=== PATIENT | female | born 2005 | race Caucasian/White ===

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

== ENCOUNTER 2024-11-16 14:26 | Outpatient (CLI) | payer MEDICAID, SELFPAY ==
[2024-11-16 15:43] LABS: Hematocrit 35.6 % (37.0-47.0); Hemoglobin 11.4 g/dL (12.0-15.0); Mean Corpuscular Hemoglobin 27.7 pg (26-34); Mean Corpuscular Volume 86.4 fl (80-100); Mean Platelet Volume 10.1 fl (7.4-10.4); Platelet Count Result 203 k/mm3 (150-375); Red Blood Count 4.12 M/mm3 (4.2-5.4); Red Cell Distribution Width 14.2 % (11.5-14.5); White Blood Count 7.1 K/mm3 (4.5-10.0)
[2024-11-16 15:59] LABS: Glucose 1 Hour PP 50gm Dose 130 mg/dL
[2024-11-16 16:28] LABS: Syphilis IgG/IgM Antibody Negative (Negative)
[2024-11-16 16:32] LABS: Hepatitis B Surface Antigen Negative (Negative); Rubella IgG Antibody 89.5 IU/ML
[2024-11-16 16:40] LABS: HIV 1/2 Ab P24 Ag Result Negative (Negative)
[2024-11-18 03:58] LABS: CMV IgG Antibody >10.00 U/mL; Varicella IgG Antibody 1.13 S/CO
== END 2024-11-16 14:27 | disposition home or self-care (01) ==
PROVIDERS: Visit Provider Student in an Organized Health Care Education/Training Program
DX: N91.2 Amenorrhea, unspecified (principal)
CPT/HCPCS: 36415; 82947; 84702; 85027; 86593; 86644; 86703; 86747; 86762; 86787; 86850; 86900; 86901; 87086; 87340; G0432

== ENCOUNTER 2024-12-27 10:16 | Observation (INO) | payer MEDICAID, SELFPAY ==
[2024-12-27 10:37] VITALS: BP 118/65; PULSE 86
[2024-12-27 10:53] VITALS: BMI 34.3
--- NOTE | 2024-12-27 10:53 | OBADM ---
This patient, Kaylene Noel, admitted to the OB room OB Post 115 for observation. Patient/family oriented to hospital policies and general routines including ID bracelet, bed and alarms, visiting hours, pain management, procedures, bathroom and other care routines, personal items, smoking policy, room service/diet, and visiting hours. Patient/Family are encouraged to report perceived risks to care and to ask questions if they do not understand what they are told or what they should do.
[2024-12-27 10:55] LABS: Add Urine Microscopic? YES; Appearance Urine Clear (Clear); Bacteria Urine 1+ /hpf; Bilirubin Urine Negative (Negative); Blood Urine 2+ (Negative); Color Urine Yellow (Yellow); Glucose Urine UA Negative (Negative); Ketones Urine Negative (Negative); Leukocyte Esterase Ur 2+ LEU/UL (Negative); Nitrate Urine Negative (Negative); Non Pathogenic Casts 0-2; Protein Urine Negative (Negative); RBC Urine 0-2 /hpf (0-2); Specific Grav Ur 1.016 (1.001-1.035); Squamous Epithelial Cell Urine Moderate /hpf (Few); Urobilinogen Urine 0.2 mg/dL (<2.0)
[2024-12-27 11:01] VITALS: BP 117/74; PULSE 92
--- NOTE | 2024-12-28 12:55 | PM.OBTRLD ---
OB - Triage/Final Diagnosis Visit Information Date of evaluation: 12/27/24 Reason for evaluation: threatened labor Comments/Additional reasons for admission: I have assessed the risk for this patient, Kaylene Noel, and determined that she would benefit from observation care. Evaluation Laboratory results: Laboratory Tests 12/27/24 10:38 Urine Color Yellow Urine Appearance Clear Urine pH 6.0 Ur Specific [place] 1.016 Urine Protein Negative Urine Glucose (UA) Negative Urine Ketones Negative Ur Blood (Man) 2+ H Urine Nitrate Negative Urine Bilirubin Negative Urine Urobilinogen 0.2 Leukocyte Esterase Rfl 2+ H Urine RBC 0-2 Urine WBC 11-20 H Ur Squamous Epith Cells Moderate Urine Bacteria 1+ H Urine Casts 0-2
== END 2024-12-27 11:25 | disposition home or self-care (01) ==
PROVIDERS: Admitting Provider Obstetrics & Gynecology; Visit Provider Student in an Organized Health Care Education/Training Program
DX: O47.02 False labor before 37 completed weeks of gestation, second trimester (principal); Z3A.26 26 weeks gestation of pregnancy
CPT/HCPCS: 81001; 87086; G0378; G0379

== ENCOUNTER 2025-01-14 07:43 | Outpatient (RCR) | payer MEDICAID, SELFPAY ==
[2025-01-12 16:37] LABS: Glucose 1 Hour PP 50gm Dose 141 mg/dL
[2025-01-12 17:09] LABS: Syphilis IgG/IgM Antibody Non-Reactive (Nonreactive)
[2025-01-12 17:14] LABS: HIV 1/2 Ab P24 Ag Result Negative (Negative)
[2025-01-14] MEDS: RHO(D) IMMUNE GLOBULIN 300 MCG/2 ML SYRINGE IM (15:16)
== END 2025-01-14 08:00 | disposition home or self-care (01) ==
LOC: ANHLAB 07:43
PROVIDERS: Visit Provider Obstetrics & Gynecology
DX: Z11.4 Encounter for screening for human immunodeficiency virus [HIV] (principal); Z11.3 Encounter for screening for infections with a predominantly sexual mode of transmission; Z29.13 Encounter for prophylactic Rho(D) immune globulin; O36.0190 Maternal care for anti-D [Rh] antibodies, unspecified trimester, not applicable or unspecified; Z3A.00 Weeks of gestation of pregnancy not specified
CPT/HCPCS: 36415; 82947; 85461; 86593; 86703; 86850; 86900; 86901; 90384; 96372; G0432; J2790

== ENCOUNTER 2025-01-19 06:42 | Outpatient (CLI) | payer MEDICAID, SELFPAY ==
[2025-01-19 07:34] LABS: Hematocrit 34.5 % (37.0-47.0); Hemoglobin 11.3 g/dL (12.0-15.0); Mean Corpuscular HGB Conc 32.8 g/dl (32-36); Mean Corpuscular Hemoglobin 27.4 pg (26-34); Mean Corpuscular Volume 83.5 fl (80-100); Mean Platelet Volume 10.1 fl (7.4-10.4); Platelet Count Result 214 k/mm3 (150-375); Red Blood Count 4.13 M/mm3 (4.2-5.4); Red Cell Distribution Width 13.1 % (11.5-14.5); White Blood Count 8.5 K/mm3 (4.5-10.0)
[2025-01-19 07:38] LABS: Glucose Fasting Gestational 89 mg/dL (>/=95)
== END 2025-01-19 06:43 | disposition home or self-care (01) ==
PROVIDERS: Visit Provider Obstetrics & Gynecology
DX: Z34.90 Encounter for supervision of normal pregnancy, unspecified, unspecified trimester (principal)
CPT/HCPCS: 36415; 82951; 82952; 85027

== ENCOUNTER 2025-02-12 11:40 | Observation (INO) | payer OTHER, SELFPAY ==
[2025-02-12 12:10] VITALS: BMI 34.9
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
--- NOTE | 2025-02-12 15:15 | OBADM ---
This patient, Kaylene Noel, admitted to the OB room Labor/Delivery/Recovery 103 for observation. Patient/family oriented to hospital policies and general routines including ID bracelet, bed and alarms, visiting hours, pain management, procedures, bathroom and other care routines, personal items, smoking policy, room service/diet, and visiting hours. Patient/Family are encouraged to report perceived risks to care and to ask questions if they do not understand what they are told or what they should do.
[2025-02-12 15:30] LABS: OBXCEM ROM Plus Negative (Negative)
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
--- NOTE | 2025-02-14 08:17 | PM.OBTRLD ---
OB - Triage/Final Diagnosis Visit Information Comments/Additional reasons for admission: I have assessed the risk for this patient, Kaylene Noel, and determined that she would benefit from observation care. Evaluation Laboratory results: Laboratory Tests 02/12/25 12:40 Membranes Rupture Rom plus negative Final Diagnosis (1) Vaginal discharge: Code(s): N89.8 - Other specified noninflammatory disorders of vagina Status: Acute
== END 2025-02-12 14:10 | disposition home or self-care (01) ==
PROVIDERS: Admitting Provider Obstetrics & Gynecology; Visit Provider Obstetrics & Gynecology
DX: O26.893 Other specified pregnancy related conditions, third trimester (principal); N89.8 Other specified noninflammatory disorders of vagina; Z3A.33 33 weeks gestation of pregnancy
CPT/HCPCS: 59025; 84112; G0378; G0379

== ENCOUNTER 2025-03-01 17:05 | Observation (INO) | payer OTHER, SELFPAY ==
[2025-03-01] VITALS (8 sets, daily range): BP systolic 96–120; BP diastolic 50–72; PULSE 71–96; BMI 35.0
[2025-03-01 19:24] LABS: Add Urine Microscopic? YES; Appearance Urine Cloudy (Clear); Glucose Urine UA Negative (Negative); Leukocyte Esterase Ur 2+ LEU/UL (Negative); Nitrate Urine Negative (Negative); Non Pathogenic Casts 0-2; Specific Grav Ur 1.027 (1.001-1.035)
[2025-03-01] MEDS: DEXTROSE 5%/LACTATED RINGERS 1,000 ML 999 ML IV CONT (20:50)
--- NOTE | 2025-03-05 00:29 | PM.OBTRLD ---
OB - Triage/Final Diagnosis Visit Information Comments/Additional reasons for admission: I have assessed the risk for this patient, Kaylene Noel, and determined that she would benefit from observation care. Evaluation Laboratory results: Laboratory Tests 03/01/25 03/01/25 18:43 21:22 POC Capillary Glucose 172 H Urine Color Dark yellow Urine Appearance Cloudy H Urine pH 5.5 Ur Specific [place] 1.027 Urine Protein 1+ H Urine Glucose (UA) Negative Urine Ketones 4+ H Ur Blood (Man) Trace Urine Nitrate Negative Urine Bilirubin Negative Urine Urobilinogen 1.0 Leukocyte Esterase Rfl 2+ H Urine RBC 0-2 Urine WBC 21-50 H Ur Squamous Epith Cells Moderate Urine Bacteria 1+ H Urine Casts 0-2 Final Diagnosis (1) False labor: Code(s): O47.9 - False labor, unspecified Status: Acute
== END 2025-03-01 22:06 | disposition home or self-care (01) ==
LOC: ANHLDR 03-02 07:18
PROVIDERS: Admitting Provider Student in an Organized Health Care Education/Training Program; Visit Provider Obstetrics & Gynecology
DX: O47.9 False labor, unspecified (principal)
CPT/HCPCS: 59025; 76819; 81001; 82948; 96360; G0378; G0379; J7121

== ENCOUNTER 2025-03-02 11:34 | Observation (INO) | payer OTHER, SELFPAY ==
[2025-03-02 12:15] VITALS: BP 115/71; PULSE 76
[2025-03-02 12:27] VITALS: BMI 34.7
--- NOTE | 2025-03-02 12:28 | OBADM ---
This patient, Kaylene Noel, admitted to the OB room OB Post 116 for observation. Patient/family oriented to hospital policies and general routines including ID bracelet, bed and alarms, visiting hours, pain management, procedures, bathroom and other care routines, personal items, smoking policy, room service/diet, and visiting hours. Patient/Family are encouraged to report perceived risks to care and to ask questions if they do not understand what they are told or what they should do.
[2025-03-02 12:30] VITALS: BP 100/62; PULSE 67
[2025-03-02 12:45] VITALS: BP 101/57; PULSE 75
[2025-03-02 14:30] LABS: OBXCEM ROM Plus Negative (Negative)
--- NOTE | 2025-03-02 14:31 | PC.NURSE ---
1200--Pt reports small amount of bleeding on tissue. C/O lower abdominal cramping. Encouraged to drink. Urine marbella colored. UA sent yesterday.
--- NOTE | 2025-03-02 14:36 | PC.NURSE ---
1215--Abdomen soft and non-tender.
--- NOTE | 2025-03-02 14:38 | PC.NURSE ---
1317--Reported pt status to Dr. Max. SVE ordered. DC orders given.
--- NOTE | 2025-03-09 07:54 | PM.OBTRLD ---
OB - Triage/Final Diagnosis Visit Information Date of evaluation: 03/03/25 Reason for evaluation: threatened labor Comments/Additional reasons for admission: I have assessed the risk for this patient, Kaylene Noel, and determined that she would benefit from observation care. Evaluation Laboratory results: Laboratory Tests 03/02/25 14:27 Membranes Rupture Rom plus negative
== END 2025-03-02 14:47 | disposition home or self-care (01) ==
PROVIDERS: Admitting Provider Student in an Organized Health Care Education/Training Program; Visit Provider Student in an Organized Health Care Education/Training Program
DX: O47.03 False labor before 37 completed weeks of gestation, third trimester (principal); Z3A.35 35 weeks gestation of pregnancy
CPT/HCPCS: 84112; G0378; G0379

== ENCOUNTER 2025-03-26 13:59 | Outpatient (RCR) | payer OTHER, SELFPAY ==
[2025-02-15 15:08] VITALS: BP 109/71; PULSE 143
[2025-02-18 13:41] VITALS: BP 122/75; PULSE 77
[2025-02-21 15:04] VITALS: BP 119/71; PULSE 99
[2025-02-26 15:25] VITALS: BP 120/68; PULSE 83
[2025-03-01 14:11] VITALS: BP 117/70; PULSE 90
[2025-03-05 14:38] VITALS: BP 115/78; PULSE 89
[2025-03-12 14:40] VITALS: BP 128/73; PULSE 101
[2025-03-18 16:44] VITALS: BP 117/82; PULSE 86
[2025-03-21 14:45] VITALS: BP 124/68; PULSE 87
--- NOTE | ~2025-03-26 | US_ITS ---
EXAMINATION: US OB BPP wo non-stress DATE: 03/01/2025 14:08 CDT INDICATION: Gestational diabetes mellitus TECHNIQUE: Real-time transabdominal obstetric ultrasound. FINDINGS: Ultrasound dated 02/21/2025 There is a single living fetus in vertex presentation. The placenta is posterior without placenta pr evia. cardiac activity and movement is noted with a heart rate of 129 beats per minute. Biophysical profile: breathin of 2 movement: 2 of 2 tone: 2 of 2 Amniotic flud pocket: 2 of 2 Total score: 8 of 8 LAINE is normal measuring 12.3 cm. IMPRESSION: 1. Single living intrauterine in vertex presentation. 2: Total biophysical profile score of 8/8. Reviewed, dictated and finalized at location B.
--- NOTE | ~2025-03-26 | US_ITS ---
EXAM: US OB BPP wo non-stress - 02/21/2025 15:05 CDT History: 19 years old Female with GDM Comparison: None available. Technique Real time transabdominal obstetric sonographic imaging was performed. Findings A single live intrauterine gestation is identified. Lie: longitudinal Presentation: vertex heart rate: 133 beats per minute Placental position: Posterior Biophysical profile: breathing movement: 0 Gross body movement: 2 tone: 2 Qualitative AFV: 2 Total BPP score: 6 of 8. Impression Total biophysical profile score is 6 out of 8. Reviewed, dictated and finalized at location A. Impression Total biophysical profile score is 6 out of 8.
--- NOTE | ~2025-03-26 | US_ITS ---
EXAMINATION: US OB BPP wo non-stress DATE: 03/26/2025 15:55 CDT INDICATION: Biophysical profile. TECHNIQUE: Real-time transabdominal obstetric ultrasound. FINDINGS: Comparison to ultrasound dated 03/18/2025 There is a single living fetus in vertex presentation. The placenta is fundal/posterior without placenta previa. LAINE is normal measuring 7.8 cm. cardiac activity and movement is noted with a heart rate of 1:30 BPM beats per minute. Biophysical profile: breathin of 2 movement: 2 of 2 tone: 2 of 2 Amniotic flud pocket: 2 of 2 Total score: 8 of 8 IMPRESSION: 1. Single living intrauterine in vertex presentation. 2: Total biophysical profile score of 8/8. Reviewed, dictated and finalized at location O.
--- NOTE | ~2025-03-26 | US_ITS ---
LIMITED OBSTETRIC ULTRASOUND/BIOPHYSICAL PROFILE Ordering provider: Aren Max MD History: . BPP, GDM . Comparison: None. FINDINGS: MATERNAL CERVIX: Not visualized. cm which is normal (normal is equal to or greater than 3.0 cm). PRESENTATION: Vertex. Longitudinal lie. PLACENTAL LOCATION: Posterior. No previa. HEART RATE: 139 bpm (normal is between 110 to 160 bpm). AMNIOTIC FLUID INDEX: 13 cm. 5th percentile is 8.3 cm. 95th percentile is 24.5th centimeters. Larges t vertical pocket is 3.9 cm. normal (LAINE between 5-25 cm in from 20-35 weeks gestation is considered normal). OTHER: Maternal ovaries not visualized. SCORE: breathing movements: 2 movements: 2 tone: 2 Amniotic fluid volume: 2 Total: 8 IMPRESSION: Normal biophysical profile. Normal amniotic fluid. Reviewed, dictated and finalized at location A.
--- NOTE | ~2025-03-26 | US_ITS ---
EXAMINATION: US OB BPP wo non-stress DATE: 03/18/2025 16:41 INDICATION: Maternal gestational diabetes during third trimester TECHNIQUE: Real-time pelvic ultrasound was performed. The interpreting radiologist was not present fo r the study. COMPARISON: 03/08/2025 FINDINGS: There is a single living fetus in vertex presentation. The placenta is posterior fundal. heart rate is 145 beats per minute (bpm). Normal amniotic fluid index of 11.1 cm (5th%-95%: 7.5-34.4 cm at 37 weeks estimated gestational age) Biophysical profile performed by the technologist: breathing (30 sec sustained breathing in 30 minutes): 2 out of 2 movement (3 gross body movements in 30 minutes): 2 out of 2 tone (one episode of [id number] limb movement): 2 out of 2 Amniotic fluid pocket (2 cm): 2 out of 2 Total score: 8 out of 8 IMPRESSION: 1. Single living fetus in vertex presentation with heart rate of 145 bpm. 2. Biophysical profile 8 out of 8. 3. Normal amniotic fluid index of 11.1 cm. Reviewed, dictated and finalized at location A.
--- NOTE | ~2025-03-26 | US_ITS ---
EXAMINATION: US OB BPP wo non-stress DATE: 03/08/2025 16:21 CDT INDICATION: Amniotic fluid index. Gestational diabetes. TECHNIQUE: Real-time transabdominal obstetric ultrasound. FINDINGS: No prior studies for comparison. There is a single living fetus in vertex presentation. The placenta is posterior without placenta pr evia. cardiac activity and movement is noted with a heart rate of 132 beats per minute. A FI is normal measuring 14.9 cm. Biophysical profile: breathin of 2 movement: 2 of 2 tone: 2 of 2 Amniotic flud pocket: 2 of 2 Total score: 8 of 8 IMPRESSION: 1. Single living intrauterine in vertex presentation. 2: Total biophysical profile score of 8/8. 3: Normal LAINE measures 14.9 cm. Reviewed, dictated and finalized at location A.
[2025-03-26 15:45] VITALS: BP 128/81; PULSE 78
== END 2025-03-31 13:30 | disposition other institution (70) ==
LOC: ANHOBOP 13:59
PROVIDERS: Visit Provider Student in an Organized Health Care Education/Training Program
DX: O24.419 Gestational diabetes mellitus in pregnancy, unspecified control (principal); Z3A.33 33 weeks gestation of pregnancy; Z3A.34 34 weeks gestation of pregnancy; O24.410 Gestational diabetes mellitus in pregnancy, diet controlled; Z3A.35 35 weeks gestation of pregnancy; Z3A.36 36 weeks gestation of pregnancy; Z3A.37 37 weeks gestation of pregnancy; Z3A.38 38 weeks gestation of pregnancy; Z3A.39 39 weeks gestation of pregnancy
CPT/HCPCS: 59025; 76819

== ENCOUNTER 2025-03-26 21:34 | Observation (INO) | payer OTHER, SELFPAY ==
[2025-03-26 21:24] VITALS: PULSE 74; O2SAT 96
[2025-03-26 21:29] VITALS: PULSE 80; O2SAT 95
[2025-03-26 21:30] VITALS: BP 132/80; PULSE 92
[2025-03-26 21:34] VITALS: PULSE 76; O2SAT 96
--- NOTE | 2025-03-26 21:36 | OBADM ---
This patient, Kaylene Noel, admitted to the OB room Labor/Delivery/Recovery 106 for observation. Patient/family oriented to hospital policies and general routines including ID bracelet, bed and alarms, visiting hours, pain management, procedures, bathroom and other care routines, personal items, smoking policy, room service/diet, and visiting hours. Patient/Family are encouraged to report perceived risks to care and to ask questions if they do not understand what they are told or what they should do.
[2025-03-26 21:39] VITALS: PULSE 84; O2SAT 97
--- NOTE | 2025-03-26 22:10 | PC.NURSE ---
2154- responded to page. RN reported pts arrival to unit with complaints of contractions and LOF. RN reported SVE, absence of contractions and negative ROM+ as well as reactive FHT's. Orders received for discharge.
--- NOTE | 2025-03-28 15:58 | PM.OBTRLD ---
OB - Triage/Final Diagnosis Visit Information Reason for evaluation: threatened labor Comments/Additional reasons for admission: I have assessed the risk for this patient, Kaylene Noel, and determined that she would benefit from observation care.
== END 2025-03-26 21:54 | disposition home or self-care (01) ==
PROVIDERS: Admitting Provider Obstetrics & Gynecology; Visit Provider Obstetrics & Gynecology
DX: O47.1 False labor at or after 37 completed weeks of gestation (principal); Z3A.39 39 weeks gestation of pregnancy
CPT/HCPCS: 99199

== ENCOUNTER 2025-03-27 16:36 | Inpatient (IN) | payer OTHER, SELFPAY ==
[2025-03-27] VITALS (8 sets, daily range): BP systolic 112–130; BP diastolic 58–80; PULSE 80–98; TEMP 36.4–36.9; BMI 38.5
--- OUTSIDE RECORDS SUMMARY | 2025-03-27 16:42 | XMS_ITS | Clinical Summary ---
Author Organization [facility] [employer] Address [address] [place] [address] Care Team Providers Care Project Management Name Role Phone Unavailable Primary Care Provider Unavailabl e Source Comments [facility] [employer],non-owned Affiliates and Associated Physician Practices is amultiple site organization consisting of ambulatory clinics and hospital sitesin [place], [place] and [place]. This disclosure is being madepursuant to the Care Everywhere program and may not contain all information available regarding this patient. Last updated [employer] Allergies Active Allergy Reactions Criticality Noted Date Comments Pineapple Anaphylaxis High 06/04/2023 Medications * This document contains information received from the source organization and may not represent a complete record from that organization. * Be aware that medications may not be up to date on this document. Alwaysverify current medications with the patient. OXcarbazepine (Trileptal) 150 MG tablet Take 1 (one) tablet by mouth 2 times daily 70 tablet 3 Active FLUoxetine (PROzac) 20 MG capsuleIndicati ons:Major Depressive Disorder Take 1 (one) capsule by mouth once daily Reasons: Major Depressive Disorder 35 capsule 3 Active Active Problems Problem Noted Date Diagnosed Date Abnormal glucose in , antepartum 2024 BMI 34.0-34.9,adult 03/02/2025 Obesity affecting in third trimester 0 03/02/2025 Bipolar disease during in third trimes ter 03/02/2025 Suicidal ideation 06/04/2023 Mood disorder 06/04/2023 Depression, unspecified depression type 06/04/20 23 Estimated Date of Delivery Comme nts Yes 04/02/2025 Based on last me nstrual period of 06/26/2024 Encounters Date Type Department Care Team Description 03/22/2025 Telephone [facility] [address] [place] [id number] Pati Ramos, RN LABS ONLY (Called and spoke with Mariza, patient's mother to see if patient was able to get her labwork M requested done. ) 03/02/2025 8:30 AM CDT - 03/02/2025 11:59 PM CDT Hospital Encounter [facility] [address] [place] [id number] Nevaeh Anderson MD Discharge Disposition: Home or Self Care 03/02/2025 8:15 AM CDT - 03/02/2025 8:29 AM CDT Hospital Encounter [facility] [address] [place] [id number] Trina Crowder MD Mead, Judith A, MD Discharge Disposition: Home or Self Care 02/08/2025 Telephone [facility] [address] [place] [id number] Pati Ramos, RN Appointment (Patient does not have listed phone number. Called motherMariza to help schedule patient's appt. ) from Last 3 Months Family History Medical History Relation Name Comments Hypertension Father Relation Name Status Comments Brother 1 Alive Brother 2 Alive Father Alive Mother Alive Social History Tobacco Use Types Packs/Day Years Used Date Smoking Tobacco: Never Smokeless Tobacco: Never Tobacco Cessation:Counseling Given: No Alcohol Use Standard Drinks/Week Comments Never 0 (1 standard drink = 0.6 oz pur e alcohol) AUDIT-C Answer Date Recorded Q1: How often do you have a drink containing alc ohol? Never 06/04/2023 Average Number of Drinks Not on file 023 Frequency of Binge Drinking Not on file 08/2022 Overall Financial Resource Strain (CARDIA) Answe r Date Recorded How hard is it for you to pa y for the very basics like food, housing, medical care, and heating? Very hard 06/04/2023 [facility] Occupat ional [facility] - Occupational Stress Questionnaire Answer Date Recorded Do you feel stress - tense, restless, nervous, or anxious, or unable to sleep at night because your mind is troubled all the time - these days? Very much 06/04/2023 Hunger Vital Sign Answer Date Recorded Within the past 12 months, y ou worried that your food would run out before you got the money to buy more. Never true 06/04/20 23 Within the past 12 months, t he food you bought just didn't last and you didn't have money to get more. Never true 06/04/2023 PRAPARE - Transportation Answer Date Re corded In the past 12 months, has l ack of transportation kept you from medical appointments or from getting medications? No 08/2022 In the past 12 months, has l ack of transportation kept you from meetings, work, or from getting things needed for daily living? No 06/04/2023 Housing Stability Vital Sign Answer Ottoniel e Recorded In the last 12 months, was t here a time when you were not able to pay the mortgage or rent on time? No 06/04/2023 In the last 12 months, how many places have you lived? 2 06/04/2023 In the last 12 months, was t here a time when you did not have a steady place to sleep or slept in a penitentiary (including now)? No 06/04/2023 Estimated Date of Delivery Comme nts Yes 04/02/2025 Based on last me nstrual period of 06/26/2024 Sex and Gender Information Value Date Recorded Sex Assigned at Not on file Legal Sex Female 11:15 PM CDT Gender Identity Not on file Sexual Orientation Not on file Last Filed Vital Signs Vital Sign Reading Time Taken Comments Blood Pressure 104/71 03/02/2025 8:56 AM CDT Pulse 87 03/02/2025 8:56 AM CDT Temperature 36.6 C (97.8 F) 06/09/2023 7:30 AM [employer] Respiratory Rate 18 06/09/2023 7:30 AM DIRECT MARKETING INTERN Oxygen Saturation 100% 06/09/2023 7:30 AM DIRECT MARKETING INTERN Inhaled Oxygen Concentration - - Weight 85.7 kg (189 lb) 03/02/2025 8:56 AM CDT Height 157.5 cm (5' 2) 03/02/2025 8:56 AM CDT Body Mass Index 34.57 03/02/2025 8:56 AM CDT Plan of Treatment Health Maintenance Due Date Last Done Comments HIV SCREENING 2019 HPV VACCINE (1 - 3-dose series) 2019 CHLAMYDIA/GONORRHEA SCREENING 2020 MENINGOCOCCAL (Group B) VACCINE SHARED DECISION-MAKING (1 of 2 - Standard) 2020 HEPATITIS C SCREENING 05/26/2022 DTAP/TDAP/TD VACCINES (1 - Tdap) 2023 HEPATITIS B VACCINE (1 of 3 - 19+ 3-dose series) 2023 COVID-19 VACCINE (3 - season) 2024 03/30/2021, 03/09/2021 OB-ONE HOUR GLUCOSE 12/25/2024 OB-TDAP CURRENT 01/01/2025 OB-RHOGAM INJECTION 01/08/2025 OB-GROUP B STREP SCREEN 02/26/2025 INFLUENZA VACCINE (#1) 2025 1, 08/22/2010, 06/08/2010, Additional history exists ZOSTER VACCINE (1 of 2) 2054 HIB VACCINE Aged Out No longer eligi ble based on patient's age to complete this topic MENINGOCOCCAL GROUPS A/C/Y/W VACCINE Aged Out No longer eligible based on patient's age to complete this topic PNEUMOCOCCAL VACCINE Aged Out No long er eligible based on patient's age to complete this topic Respiratory Syncytial Virus (RSV) Vaccine Pt: or over 60 yrs (No Doses Required) Completed Procedures Procedure Name Priority Date/Time Associated Diagnosis Comments SONOGRAM - COMPLETE Routine 03/02/2025 8 :26 AM CDT Encounter for ultrasound (HCC) Late care (HCC) Abnormal O'Randall glucose challenge test, antepartum (HCC) 35 weeks gestation of (HCC) from Last 3 Months Results * Sonogram - Complete (03/02/2025 8:26 AM CDT) Linked Results Indication ======== Gestational diabetes mellitus in , unspecified control Failed 1hr (141) Unable to Complete 3hr Maternal obesity complicating , class 1 (BMI 30.0 - 34.9) History ====== OB History 1 Lab Tests Test Date Result Not performed Maternal Assessment Physical Exam Height 155 cm, 5 ft 1 in. Weight 86 kg, 189 lb. Initial weight 83 kg, 183 lb. BMI 35.71 kg/m . Initial BMI 34.58 kg/m . Weight gain 3 kg, 6 lb Method ====== Transabdominal ultrasound. View: Sufficient ========= Todd . Number of fetuses: 1 Dating ====== Date Details Gest. age HIMA LMP 06/26/2024 35 w + 4 d 04/02/2025 Assigned dating based on the LMP, selected on 03/02/2025 35 w + 4 d 04/02/2025 General Evaluation Cardiac activity present. FHR 135 bpm. Presentation: cephalic Placenta: Placental site: posterior Umbilical cord: Cord vessels: 3 vessel cord. Insertion site: suboptimal Amniotic Fluid Assessment == Amount of AF: normal MVP 5.5 cm. LAINE 16.7 cm. Q1 3.7 cm, Q2 3.8 cm, Q3 3.7 cm, Q4 5.5 cm Biophysical Profile 2: breathing movements 2: Gross body movements 2: tone 2: Amniotic fluid volume NST: non-reactive 03/13 Biophysical profile score Non Stress Test NST interpretation: non-reactive. Baseline FHR 135 bpm. Baseline variability: moderate. Accelerations: present, do not meet criteria. Decelerations: absent Biometry BPD 87.2 mm 35w 1d 45% Hadlock HC 319.4 mm 36w 0d 27% Hadlock Cerebellum tr 48.1 mm 33% [place] AC 319.3 mm 35w 6d 67% Hadlock Femur 70.1 mm 36w 0d 54% Hadlock Humerus 62.3 mm 36w 0d 81% Carrillo HC / AC 1.00 Weight Calculation: EFW 2,776 g 56% Hadlock EFW (lb,oz) 6 lb 2 oz EFW by Hadlock ([id number]) appropriate Growth Overview Exam date GA BPD (mm) HC (mm) AC (mm) FL (mm) HL (mm) EFW (g) 03/02/2025 35w 4d 87.2 45% 319.4 27% 319.3 67% 70.1 54% 62.3 81% 2776 56% Anatomy The following structures appear normal: Head / Neck Cranium. Lateral ventricles. Choroid plexus. Midline falx. Cavum septi pellucidi. Cerebellum. Cisterna magna. Thalami. Face Lips. Profile. Nose. Nasal bone. Orbits. Heart / Thorax 4-chamber view. RVOT view. LVOT view. 3-vessel view. 5-putbye-mgijgpz view. Situs. Aortic arch view. Ductal arch view. Interventricular septum. Great vessels. Right lung. Left lung. Diaphragm. Abdomen Stomach. Kidneys. Bladder. Bowel. Spine Cervical spine. Thoracic spine. Lumbar spine. Sacral spine. Extremities / Skeleton Right forearm. Left arm. Right foot. Left leg. The following structures could not be adequately visualized: Heart / Thorax Bicaval view. Abdomen Cord insertion. Genitals. Extremities / Skeleton Hands. Right upper arm. Right leg. Left foot. Maternal Structures Right Ovary Not visualized Appearance: Adnexa appears normal Left Ovary Not visualized Appearance: Adnexa appears normal Impression ========= This is the first exam at our facility at this late gestational age. Single, live, intrauterine at 35w 4d Biometry is consistent with the stated gestational age. The amniotic fluid volume is normal. The biophysical profile is 8/10. anatomic survey is limited by late gestational age. Follow-up ======== Growth US in 3 weeks, See separate M visit note. Close surveillance for hypertension. Coding ====== Diagnoses O99.213, E66.811: Obesity complicating , class 1 (BMI 30.0 - 34.9) O24.419: Gestational diabetes mellitus in , unspecified control Procedures 10584: Biophysical Profile W NST 28640: US Preg Uterus Detailed [facility] [place] PACS Anatomical Region Laterality Modality Other 03/02/2025 8:26 AM CDT us John Gomez MD [facility] ORDERABLES Edited Result - Final from Last 3 Months Insurance Advance Directives * Full Code (Latest Code Status on File) Date Activated Date Inactivated Comments 06/04/2023 4:23 AM 06/09/2023 3:44 PM
[2025-03-27 17:13] LABS: Hematocrit 34.7 % (37.0-47.0); Hemoglobin 11.3 g/dL (12.0-15.0); Immature Granulocyte Percent A 0.4 % (0-0.5); Lymphocytes Absolute Auto 1.48 K/mm3 (0.9-3.2); Mean Corpuscular HGB Conc 32.6 g/dl (32-36); Mean Corpuscular Hemoglobin 26.3 pg (26-34); Mean Corpuscular Volume 80.9 fl (80-100); Nucleated Red Blood Cells Absolute Auto 0.000 K/mm3 (0.0-0.012); Nucleated Red Blood Cells Perc 0.0 % (0.0-0.2); Platelet Count Result 253 k/mm3 (150-375); Red Blood Count 4.29 M/mm3 (4.2-5.4); White Blood Count 9.7 K/mm3 (4.5-10.0)
[2025-03-27] MEDS: DINOPROSTONE 10 MG VAG INSERT VAGINAL (17:47)
--- NOTE | 2025-03-27 17:58 | LDADM ---
This patient, Kaylene Noel, was admitted to Labor/Delivery/Recovery 109 on 03/27/25 at 16:36. Plans for labor, pain management and were discussed with patient. Patient/family oriented to hospital policies and general routines including ID bracelet, bed and alarms, visiting hours, pain management, procedures, bathroom and other care routines, personal items, smoking policy, room service/diet and guest tray routines, infant security routines, and visiting hours. Patient/Family are encouraged to report perceived risks to care and to ask questions if they do not understand what they are told or what they should do. See OBIX for further documentation.
[2025-03-27 18:00] LABS: Syphilis IgG/IgM Antibody Non-Reactive (Nonreactive)
[2025-03-28] VITALS (201 sets, daily range): BP systolic 97–145; BP diastolic 46–91; PULSE 56–110; TEMP 36.3–36.7; O2SAT 94–100
[2025-03-28] MEDS: LACTATED RINGERS 1,000 ML 125 ML IV CONT ×3 (07:50→22:37)
--- NOTE | 2025-03-28 07:54 | P.HP_ITS ---
H&P: HPI History of Present Illness Date/Time: 03/28/25 07:54 Chief Complaint: Intrauterine at term gestational diabetes Narrative: 19-year-old who presents at 39 weeks for induction of labor for gestational diabetes. Patient's 1 hour GCT was elevated. She was unable to complete 3 hour GTT. Patient was checking blood sugars. Patient had several elevated postprandial levels. Review of Systems Cardiovascular: Cardiovascular: Denies chest pain, Denies leg edema, Denies palpitations, Denies dyspnea and Denies dyspnea on exertion Respiratory: Respiratory: Denies cough, Denies dyspnea and Denies dyspnea on exertion Gastrointestinal: Gastrointestinal: Denies abdominal pain, Denies constipation, Denies diarrhea, Denies nausea and Denies vomiting Genitourinary: Genitourinary: Denies hematuria, Denies urinary frequency, Denies dysuria, Denies pelvic pain, Denies urinary incontinence and Denies vaginal discharge Neurologic: Reports system reviewed and no additional complaints, except as documented Psychiatric: Psychiatric: Reports no additional psychiatric complaints Endocrine: Endocrine: Denies palpitations PMFSH Past Medical History Medical History Asthma Anxiety Family History Family History Grandparent Breast cancer Heart disease Brain cancer Mother Depression Diabetes mellitus Heart disease Hypertension Father Diabetes mellitus Heart disease Hypertension Social History Social History Smoking status: Never smoker Second hand tobacco smoke exposure: Yes Alcohol intake: former Substance use: never Substance use type: does not use Do You Feel Safe in your Home?: No Lack of Transportation: YES Lack of Food: Never True Current Housing: I Have Housing Concerned About Future Housing: No Difficulty Paying Gas/Electric Bills: No Difficulty Paying for Meds: No Currently Unemployed: No Education: High School Diploma/GED Difficulty w/ Childcare or Family Care: No Living arrangements: with family Occupation/Education: unemployed Gender identity (if verbalized by the patient): Female Sexual Orientation (if Verbalized by the Patient): Straight or Heterosexual Spiritual care concerns: No Meds Home Medications and Allergies Home Medications ?Medication ?Instructions ?Recorded ?Confirmed ?Type pediatric multivitamin 2 tablet PO DAILY 03/12/25 0 03/27/25 History no.203-ferrous sulfate 18 mg chewable tablet (Flintstones with Iron) Allergies Allergy/AdvReac Type Severity Reaction Status Date / Time pineapple Allergy Swelling Verified 03/24/25 15:36 of Lip/Tongue/Throat Vital Signs Vital Signs - 24 hr 03/27/25 17:09 03/27/25 17:30 03/27/25 18:00 Temperature 97.6 F Pulse Rate 81 98 89 Blood Pressure 121/70 119/78 122/80 Pulse Oximetry 03/27/25 18:30 03/27/25 19:00 03/27/25 19:30 Temperature Pulse Rate 83 94 87 Blood Pressure 130/80 120/77 112/58 L Pulse Oximetry 03/27/25 20:00 03/27/25 22:00 03/28/25 00:00 Temperature 97.8 F 98.4 F 97.4 F L Pulse Rate 80 Blood Pressure 117/72 Pulse Oximetry 03/28/25 00:15 03/28/25 00:30 03/28/25 00:45 Temperature Pulse Rate 85 102 H 76 Blood Pressure 114/56 L 132/71 125/73 Pulse Oximetry 03/28/25 01:00 03/28/25 01:15 03/28/25 01:31 Temperature Pulse Rate 80 83 84 Blood Pressure 125/85 135/60 145/72 H Pulse Oximetry 03/28/25 01:46 03/28/25 02:00 03/28/25 02:15 Temperature 98.1 F Pulse Rate 72 74 76 Blood Pressure 129/79 130/70 120/59 L Pulse Oximetry 03/28/25 02:47 03/28/25 03:01 03/28/25 04:00 Temperature 97.7 F Pulse Rate 79 73 Blood Pressure 108/59 L 118/81 Pulse Oximetry 03/28/25 04:30 03/28/25 05:01 03/28/25 05:30 Temperature Pulse Rate 64 66 70 Blood Pressure 122/74 110/60 133/84 Pulse Oximetry 03/28/25 06:00 03/28/25 06:11 03/28/25 06:16 Temperature 97.9 F Pulse Rate Blood Pressure Pulse Oximetry 98 98 03/28/25 06:21 03/28/25 06:26 03/28/25 06:31 Temperature Pulse Rate Blood Pressure Pulse Oximetry 99 98 98 03/28/25 06:36 03/28/25 06:41 03/28/25 06:46 Temperature Pulse Rate Blood Pressure Pulse Oximetry 99 99 99 03/28/25 06:51 03/28/25 06:56 03/28/25 07:00 Temperature Pulse Rate 67 Blood Pressure 125/91 H Pulse Oximetry 98 98 03/28/25 07:01 03/28/25 07:06 03/28/25 07:11 Temperature Pulse Rate Blood Pressure Pulse Oximetry 99 99 98 03/28/25 07:16 03/28/25 07:21 03/28/25 07:26 Temperature Pulse Rate Blood Pressure Pulse Oximetry 99 99 100 03/28/25 07:29 03/28/25 07:34 03/28/25 07:43 Temperature Pulse Rate Blood Pressure Pulse Oximetry 100 100 98 Exam Const: General: no acute distress Eyes: EOM: EOMs intact bilaterally Neck: Neck: supple Thyroid: thyroid normal Chest: Breast/axilla inspection: normal inspection of the breasts Breast/axilla palpation: normal palpation of the breasts, normal palpation of the axillae and no axillary lymphadenopathy Resp: Effort & Inspection: normal respiratory effort Auscultation: clear to auscultation bilaterally Cardio: Rate: regular rate Rhythm: regular rhythm GI: Inspection: non-distended and other (Gravid) GI Palp: Yes Soft to palpation, No Tenderness to palpation present (GI) and No Guarding due to palpation present (GI) Auscultation: normal bowel sounds : Speculum Exam - Vagina: No vaginal bleeding OB/external & speculum: external exam normal; No vaginal bleeding Skin: General skin exam: normal color and no rashes or lesions noted Neuro: Cognition (Neuro): normal cognition Speech: normal speech Extrem: General: normal to inspection Psych: Mental Status: mental status grossly normal Affect: normal affect H&P: Results Labs Labs: Short CBC 03/27/25 Range/Units 17:06 WBC 9.7 (4.5-10.0) K/mm3 Hgb 11.3 L (12.0-15.0) g/dL Hct 34.7 L (37.0-47.0) % Plt Count 253 (150-375) k/mm3 Assessment and Plan Assessment and plan (1) Supervision of high-risk : Code(s): O09.90 - Supervision of high risk , unspecified, unspecified trimester Status: Acute Assessment and Plan: 19 yo at 39w labs reviewed Rh neg, will need rhogam PP GBS negative (2) Gestational diabetes: Code(s): O24.419 - Gestational diabetes mellitus in , unspecified control Status: Acute Assessment and Plan: failed 1 hour GCT, unable to complete 3 hour Patient has been checking blood sugars at home Compliant with testing Plan for induction of labor at 39 weeks
[2025-03-28] MEDS: OXYTOCIN 30 UNITS/NS 500 ML 30 UNITS/500 ML BAG IV CONT (09:02)
[2025-03-28] MEDS: AMPICILLIN SODIUM 2 GM in SODIUM CHLORIDE 0.9% IV 100 ML 200 ML IVPB (09:20)
--- NOTE | 2025-03-28 13:04 | P.PNAN_ITS ---
Anes - Initial Pre Proc Eval Date/Time: 03/28/25 13:04 Surgeon: Aren Max MD Pre Op Diagnosis: IOL Patient Data Age: 19 Gender: F Height: 1.5 m Weight: 86.5 kg Last Vital Signs Temp 36.6 C 03/28/25 12:00 Pulse 59 L 03/28/25 13:00 BP 116/67 03/28/25 13:00 Pulse Ox 100 03/28/25 10:05 Allergies Allergy/AdvReac Type Severity Reaction Status Date / Time pineapple Allergy Swelling Verified 03/24/25 15:36 of Lip/Tongue/Throat Home Medications ?Medication ?Instructions ?Recorded ?Confirmed ?Type pediatric multivitamin 2 tablet PO DAILY 03/12/25 0 03/27/25 History no.203-ferrous sulfate 18 mg chewable tablet (Flintstones with Iron) Laboratory Tests 03/27/25 03/27/25 03/27/25 17:06 18:39 22:18 WBC 9.7 K/mm3 (4.5-10.0) RBC 4.29 M/mm3 (4.2-5.4) Hgb 11.3 L g/dL (12.0-15.0) Hct 34.7 L % (37.0-47.0) MCV 80.9 fl (80-100) MCH 26.3 pg (26-34) MCHC 32.6 g/dl (32-36) RDW 14.1 % (11.5-14.5) Plt Count 253 k/mm3 (150-375) MPV 11.3 H fl (7.4-10.4) Immature Gran % (Auto) 0.4 % (0-0.5) Neut % (Auto) 78.2 H % (45.5-73.1) Lymph % (Auto) 15.3 L % (18.3-44.2) [place] % (Auto) 5.3 % (2.6-8.5) Eos % (Auto) 0.5 % (0-4.4) Baso % (Auto) 0.3 % (0.2-1.2) Lymph # (Auto) 1.48 K/mm3 (0.9-3.2) [place] # (Auto) 0.5 K/mm3 (0.1-0.6) Eos # (Auto) 0.1 K/mm3 (0-0.3) Baso # (Auto) 0.0 K/mm3 (0.0-0.1) Abs Immat Gran (auto) 0.04 H K/mm3 (0.00-0.031) Absolute Neuts (auto) 7.6 H K/mm3 (1.3-6.7) Absolute Nucleated RBC 0.000 K/mm3 (0.0-0.012) Nucleated RBC % 0.0 % (0.0-0.2) POC Capillary Glucose 86 mg/dl 80 mg/dl (65-105) (65-105) Syphilis IgG/IgM Ab Non-reactive (Nonreactive) Blood Type AB Negative Antibody Screen Negative 03/28/25 03/28/25 03/28/25 02:01 06:04 10:24 WBC RBC Hgb Hct MCV MCH MCHC RDW Plt Count MPV Immature Gran % (Auto) Neut % (Auto) Lymph % (Auto) [place] % (Auto) Eos % (Auto) Baso % (Auto) Lymph # (Auto) [place] # (Auto) Eos # (Auto) Baso # (Auto) Abs Immat Gran (auto) Absolute Neuts (auto) Absolute Nucleated RBC Nucleated RBC % POC Capillary Glucose 90 mg/dl 84 mg/dl 84 mg/dl (65-105) (65-105) (65-105) Syphilis IgG/IgM Ab Blood Type Antibody Screen Patient hx anesthesia problems: none Family hx anesthesia problems: none Results Review: All pre-operative results and documents have been reviewed as part of the pre- operative evaluation. [facility] Past Medical History Medical History Asthma Anxiety Family History Family History Grandparent Breast cancer Heart disease Brain cancer Mother Depression Diabetes mellitus Heart disease Hypertension Father Diabetes mellitus Heart disease Hypertension Social History Social History Smoking status: Never smoker Second hand tobacco smoke exposure: Yes Alcohol intake: former Substance use: never Substance use type: does not use Do You Feel Safe in your Home?: No Lack of Transportation: YES Lack of Food: Never True Current Housing: I Have Housing Concerned About Future Housing: No Difficulty Paying Gas/Electric Bills: No Difficulty Paying for Meds: No Currently Unemployed: No Education: High School Diploma/GED Difficulty w/ Childcare or Family Care: No Living arrangements: with family Occupation/Education: unemployed Gender identity (if verbalized by the patient): Female Sexual Orientation (if Verbalized by the Patient): Straight or Heterosexual Spiritual care concerns: No Anes - Eval Final PreProcedure Day of Procedure 03/28/25 13:04 Patient weight: obese Heart: regular rate and rhythm Lungs: clear to auscultation Neurological: alert and oriented ASA classification: III Emergent: no Anesthetic plan: proceed Anesthesia type and monitoring: regional epidural and standard monitoring Results Review: All pre-operative results and documents have been reviewed as part of the pre- operative evaluation. Informed Consent: The patient's anesthetic plan and its attendant risks and benefits were discussed with the patient/family/POA. Questions were solicited and answers provided to the satisfaction of the patient/family/POA.
[2025-03-29] VITALS (113 sets, daily range): BP systolic 110–152; BP diastolic 45–85; PULSE 73–122; RESP 14–18; TEMP 36.1–37.5; O2SAT 89–100
[2025-03-29] MEDS: LACTATED RINGERS 1,000 ML 125 ML IV CONT (01:37)
[2025-03-29] MEDS: SODIUM CHLORIDE 0.9% IV 300 ML 600 ML I-UTERINE (03:31)
--- NOTE | 2025-03-29 04:27 | PM.OBPNLAB ---
Pain Control Date/time seen: 03/29/25 04:27 Pain control: epidural Pelvic Exam Dilation (cm): 7 Effacement (%): 90 station: -1 Amniotic membrane status: Ruptured Contractions Monitor mode: Internal Contraction pattern: Irregular Contraction intensity: Mild Status status: Category ll Assessment and Plan Assessment: induction ongoing Plan: Comments: Cervix has remained unchanged for several hours. Contractions have not been adequate despite Pitocin. heart tones have also had 3 separate prolonged decelerations. Plan of care discussed with patient. Given remote from delivery, intolerance from labor and protracted labor, would recommend proceeding with primary . Risks, benefits, alternatives reviewed. Patient consents to proceed with primary for failed induction of labor, arrest of dilation, intolerance to labor.
[2025-03-29] MEDS: ACETAMINOPHEN 500 MG TABLET 1000 MG PO ×4 (04:33→23:29)
[2025-03-29] MEDS: FAMOTIDINE 20 MG/2 ML VIAL IV PUSH (04:33)
[2025-03-29] MEDS: ONDANSETRON INJ 4 MG/2 ML VIAL IV PUSH (04:33)
[2025-03-29] MEDS: ceFAZolin 2 GM in SODIUM CHLORIDE 0.9% IV 50 ML 100 ML IVPB (04:46)
--- NOTE | 2025-03-29 05:37 | W.PM.OBCSD ---
OB - Delivery Note Procedure Delivery date: 03/29/25 Pre-op diagnosis: Arrest of Decent, Arrest of Dilation, Failed Induction of Labor, Decelerations and Gestational Diabetes Post-op Diagnosis: Same Induction method: Per Cervidil Protocol Delivery augmentation: Rupture of Membranes and Pitocin Delivery monitor: External FHT and Internal Uterine Prior to decision for section, ACOG/SM labor guidelines were considered and discussed with the patient and staff. Decision made to proceed with the section.: Yes Procedure Performed: Primary Primary branch: low cervical, transverse Surgeon: Aren Max MD Anesthesia type: Epidural Description of Procedure/Findings: The patient was taken to the operating room. Patient had an epidural that was found to be adequate at a t-10 level. The patient was placed in a supine position with a slight left lateral tilt. A tan catheter was placed with return of clear urine. A Bovie grounding pad was placed. Surgical prep was performed and surgical drapes were placed. A surgical time out was performed. A Pfannenstiel skin incision was then made with the scalpel and carried through to the underlying layer of fascia. The fascia was then incised in the midline and the incision was extended laterally with the Villatoro scissors. The superior aspect of the fascia was then grasped with the Aditi clamps, elevated, and the underlying rectus muscles dissected off bluntly and sharply. Attention was then turned to the inferior aspect of this incision which, in a similar fashion, was grasped, tented up with the Aditi clamps, and the rectus muscles dissected off both bluntly and sharply. The rectus muscles were then in the midline. The peritoneum was identified and entered bluntly. The peritoneal incision was then extended superiorly and inferiorly with good visualization of the bladder. An Alphonse ring retractor was placed for better visualization. The vesico-uterine serosa was identified and dissected to create a bladder flap. The uterus was inspected for rotation. A low-transverse uterine incision was made sharply with the scalpel and entry was made into the uterine cavity. The uterine incision was extended laterally bluntly. The fetus was delivered atraumatically. A nuchal cord x 1 was noted and reduced. The nose and mouth were suctioned with a bulb syringe. The umbilical cord was clamped twice and cut. The was handed off to the waiting staff. A second segment of umbilical cord was clamped and cut for cord blood gasses. Cord blood was collected for determination of the blood type and for direct Harris. The placenta was delivered spontaneously without difficulty. The placenta appeared grossly normal and complete. The uterus was exteriorized and cleared of all clots and debris. The uterine incision was repaired using 0-monocryl suture in a running fashion. A second layer of 0 Monocryl suture was used in an imbricating fashion to obtain excellent hemostasis and uterine strength. The uterine closure was inspected for hemostasis. The posterior aspect of the uterus and the broad ligaments were inspected and the posterior cul-de-sac cleared of fluid and blood clots. The uterine closure was again inspected and found to be hemostatic. The uterus was returned to the abdominal cavity. The pericolic gutters were inspected and were cleared of all blood clots and debris. The uterine closure was then re inspected to ensure hemostasis as were all subfascial tissues. The peritoneum was closed using 3-0 vicryl in a running fashion. The fascia was reapproximated with 0-vicryl in a running fashion. The subcutaneous tissue was irrigated and hemostasis achieved with electrocautery. It was reapproximated with 3-0 vicryl in a running fashion. The skin was closed with 4-0 vicryl in a subcuticular fashion. A sterile dressing was applied to the wound. The patient tolerated the procedure well. Sponge, lap and needle counts were correct times three. The patient was taken to recovery in stable condition and without anticipated complications. Estimated Blood Loss: 1,145 Urine Output: 150 Drains: No Packing: No Pathology: None sent Complications: No immediate complications Condition: Stable Disposition: Floor Baby Date of : 03/29/25 Gestational Age by Date: 39 Infant gender: Female presentation: vertex Placenta delivery description: Manual Removal Cord Vessel Description: 3 Vessels
[2025-03-29] MEDS: LIDOCAINE 5% PATCH 1 PATCH TRANSDERM (06:43)
[2025-03-29] MEDS: MORPHINE SULFATE (*CRX) 2 MG/ML INJ IV PUSH ×2 (07:28→07:41)
--- NOTE | 2025-03-29 08:17 | PC.NURSE ---
Patient transferred to post room #292 via stretcher. Support person present. Oriented to unit, room, information board, rooming in, admission packet and security measures. Patient verbalizes understanding.
[2025-03-29] MEDS: OXYTOCIN 30 UNITS/NS 500 ML 30 UNITS/500 ML BAG 125 UNITS IV CONT (08:35)
--- NOTE | 2025-03-29 09:50 | PC.NURSE ---
0950: Met with patient regarding needs. Name written on board and handout given with latch on tips. Patient is encouraged to call out at any feedings for help. She was able to breastfeed successfully after delivery. Baby is on the hypoglycemia protocol and needs preprandial blood sugars taken. Mom knows to call out for sugar checks before feeding. Primary RN updated. 1040: had a low blood glucose and the primary RN will be giving glucose gel and supplement. Mom is attempting to breastfeed now while waiting for the glucose interventions. Baby was latched to the breast already when I entered the room. The latch appeared shallow and mom agrees that it is a little painful. We removed baby from the breast and mom was shown how to back baby off the breast to allow for a wide gape and deep latch. It took a few attempts and then baby latched optimally with a mouth full of breast and suckled vigorously. Mom is encouraged to break any latch that is painful and try to latch deeper, calling for assistance as needed. Patient is quiet and doesn't say much, but agrees to call out if needed. Primary RN updated.
[2025-03-29] MEDS: KETOROLAC 15 MG/ML VIAL (*BKC) IV PUSH ×3 (11:42→23:25)
[2025-03-29] MEDS: SIMETHICONE 80 MG TAB.CHEW PO ×2 (11:43→16:03)
[2025-03-29] MEDS: DEXTROSE 5%/0.45% SOD CHL 1,000 ML 125 ML IV CONT (12:38)
[2025-03-29] MEDS: MULTIVIT/MIN/PREN/FOL AC/IRON TABLET 1 TAB PO (16:03)
[2025-03-29] MEDS: DOCUSATE SODIUM 100 MG CAPSULE PO (18:03)
[2025-03-29] MEDS: LANOLIN (LANSINOH) 7.5 GM CREAM 1 APPLIC TOPICAL (18:05)
[2025-03-29] MEDS: oxyCODONE HCL (*CRX) 5 MG TAB IR PO (20:05)
[2025-03-30 00:46] VITALS: BP 106/45; PULSE 80; RESP 16; TEMP 36.2; O2SAT 99
[2025-03-30 04:42] LABS: Hematocrit 25.3 % (37.0-47.0); Hemoglobin 8.2 g/dL (12.0-15.0); Immature Granulocyte Percent A 0.5 % (0-0.5); Lymphocytes Absolute Auto 1.35 K/mm3 (0.9-3.2); Mean Corpuscular HGB Conc 32.4 g/dl (32-36); Mean Corpuscular Hemoglobin 26.7 pg (26-34); Mean Corpuscular Volume 82.4 fl (80-100); Nucleated Red Blood Cells Absolute Auto 0.000 K/mm3 (0.0-0.012); Nucleated Red Blood Cells Perc 0.0 % (0.0-0.2); Platelet Count Result 180 k/mm3 (150-375); Red Blood Count 3.07 M/mm3 (4.2-5.4); White Blood Count 10.1 K/mm3 (4.5-10.0)
[2025-03-30] MEDS: ACETAMINOPHEN 500 MG TABLET 1000 MG PO ×4 (04:50→22:24)
[2025-03-30] MEDS: IBUPROFEN 600 MG TABLET PO ×4 (04:51→22:24)
[2025-03-30] MEDS: LIDOCAINE 5% PATCH 1 PATCH TRANSDERM (07:43)
[2025-03-30] MEDS: DOCUSATE SODIUM 100 MG CAPSULE PO ×2 (07:44→16:30)
[2025-03-30] MEDS: MULTIVIT/MIN/PREN/FOL AC/IRON TABLET 1 TAB PO (07:45)
[2025-03-30] MEDS: SIMETHICONE 80 MG TAB.CHEW PO ×3 (07:45→16:30)
[2025-03-30] MEDS: oxyCODONE HCL (*CRX) 5 MG TAB IR 10 MG PO (07:46)
--- NOTE | 2025-03-30 08:03 | WPDANLDPN2 ---
Anes-Prog Note L&D Date/Time: 03/30/25 08:03 Comfortable throughout: section Neuraxial method: epidural Epidural/Spinal procedure site: clean & non-tender Neuro status: Neuro function grossly intact. Cardiovascular status: normal Respiratory status: normal Airway patency: baseline Mental status: baseline Post-Op hydration status: normal Vital Signs: Last Vital Signs Temp 97.2 F L 03/30/25 00:46 Pulse 80 03/30/25 00:46 Resp 16 03/30/25 00:46 BP 106/45 L 03/30/25 00:46 Pulse Ox 99 03/30/25 00:46 O2 Del Method Room Air 03/29/25 19:44 Pain score (VAS): 0/10 I/O: Intake & Output 03/29/25 03/30/25 03/30/25 23:59 07:59 15:59 Intake Total 1045 Output Total 250 250 Balance 795 -250 Post-procedural complaints: none Patient feedback: Patient satisfied with anesthetic care.
--- NOTE | 2025-03-30 08:03 | WPDANLDNPN2 ---
Anes-Prog Note L&D-Neuraxial Date/Time: 03/30/25 08:03 Neuraxial medications: epidural PF morphine Opiod-related complaints: none Patient feedback: Patient satisfied with post-operative pain management.
[2025-03-30 08:30] VITALS: BP 106/63; PULSE 75; RESP 16; TEMP 36.6; O2SAT 99
--- NOTE | 2025-03-30 08:39 | P.PNOB_ITS ---
OB - PN: Subj Subjective Date/time seen: 03/30/25 08:39 Patient comments: no complaints, pain well controlled, tolerating diet and flatus present OB - PN: Obj Data Labs 03/30/25 03:26 Labs: Laboratory Results - last 24 hr 03/30/25 03:26 WBC 10.1 H RBC 3.07 L Hgb 8.2 L D Hct 25.3 L MCV 82.4 MCH 26.7 MCHC 32.4 RDW 14.8 H Plt Count 180 MPV 11.8 H Immature Gran % (Auto) 0.5 Neut % (Auto) 79.7 H Lymph % (Auto) 13.3 L Warrick % (Auto) 5.5 Eos % (Auto) 0.7 Baso % (Auto) 0.3 Lymph # (Auto) 1.35 Warrick # (Auto) 0.6 Eos # (Auto) 0.1 Baso # (Auto) 0.0 Abs Immat Gran (auto) 0.05 H Absolute Neuts (auto) 8.1 H Absolute Nucleated RBC 0.000 Nucleated RBC % 0.0 Blood Type AB Negative Antibody Screen Negative Screen Negative Baby's Blood Type A pos Baby's SARA Negative Doses of RhIg Required 1 OB - PN A/P Plan day: 1 Plan: routine care Comments: patient doing well H/H , asymptomatic afebrile, VSS incision Covered with STORM dressing tan removed, voiding spontaneously continue routine post op care Time Spent With Patient Time: Total time spent is greater than 50% in coordination of care (as documented) at patient's floor/unit and/or counseling patient: Time with patient: less than 15 minutes Review of Systems 2 Constitutional: Constitutional: Reports no additional constitutional complaints Cardiovascular: Cardiovascular: Reports no additional cardiovascular complaints Respiratory: Respiratory: Reports no additional respiratory complaints Gastrointestinal: Gastrointestinal: Reports no additional gastrointestinal complaints Genitourinary: Genitourinary: Reports no additional female genitourinary complaints Exam 2 Const: General: comfortable and no acute distress Resp: Effort & Inspection: normal respiratory effort Auscultation: clear to auscultation bilaterally Cardio: Rate: regular rate GI: GI Palp: Yes Soft to palpation, Yes Tenderness to palpation present (GI) (around incision ) and No Guarding due to palpation present (GI) A uscultation: normal bowel sounds Other: incision C/D/I, covered with Dermabond Psych: Appearance: grossly normal Mental Status: mental status grossly normal Affect: normal affect
--- NOTE | 2025-03-30 09:35 | PC.NURSE ---
Consulted with patient to assess needs related to . Discussed with mother her successes, concerns and any questions she has. We reviewed working with the , supporting breast, protecting her nipples with an optimal deep latch, good positioning, and good hand washing. Encouraged understanding the benefits of skin to skin, responding to feeding cues, frequencies of feeding 8-12 times in 24 hours (approximately 2-3 hours), duration of feedings, milk production, intake/output feeding sheet and signs of adequate intake encouraging swallowing at the breast. Reviewed positioning and alignment, supporting breast, off-centered (asymmetrical latch) and leading with the chin with big, open, wide gape. latched optimally to the [right] breast in [laid-back] position. Education given to the mother of how to visualize the suckling (with good rocking jaw motion) swallows (dropping of the lower jaw) and how to listen for drinking at the breast (the ka sound). The infant was [able] to maintain latch without discomfort to mother. Nipple care reviewed with optimal latch, good positioning and using clean hands when touching her breast. Resources used to facilitate learning were used from the [visual handouts/ tool/mom and baby guide]. Mother voiced understanding of the education shared, to call for assistance if the infant does not latch or if there is discomfort with . Reported to the Primary RN.
--- NOTE | 2025-03-30 12:35 | PC.NURSE ---
1235- Discussed with Merlene from Care coordination concerns for pt's ability to care for as well as past suicide attempt and Merlene stated she will come see pt later today and to call with further needs/ concerns.
[2025-03-30] MEDS: RHO(D) IMMUNE GLOBULIN 300 MCG/2 ML SYRINGE IM (12:55)
--- NOTE | 2025-03-30 16:43 | PCCCNOTE ---
Met with pt. and WALE Coughlin. This is their first child together. No previous children for both. Pt. and Ced reports they have support that includes family and friends. Pt. is already set up for [facility] and has instructions to contact the [place] office at discharge to start services. They have a car seat, bassinet, clothing, diapers, breast pump and other items for the baby. They do not have a stroller, spoke about [facility] in [place] and encouraged them to check to see if they have one gently used. Ced reports he will do this. Pt. reports at this time she does not have a PMD or a behavioral health physician. Reports that she did have behavioral health struggles last year which included thoughts to harm herself. Sought out treatment at that time and has not had to follow up since then. Does not take any behavioral health medication at this time. Pt. was provided information to establish with a PMD and information to establish with a Mental Health provider if needed. Pt. reports she plans to see Dr. Max on 04/28 and will touch base with him at that time on how she is feeling. Also pointed out information for post partem resources that include depression and anxiety feelings and encouraged her to use them if needed or to follow up before her appointment with Dr. Max. donation basket given. Pt. and Ced deny any other needs. Reports Ced will transport them home.
--- NOTE | 2025-03-30 17:16 | PC.NURSE ---
1645. Called to assist with patient latching to a sore/tender breast. Mom reports that her L nipple is sore/damaged, reviewed with mom proper alignment and positioning of which often creates the optimal latch. Mom attempted to latch with nipple shield to the L breast, after repeated attempts unable to latch and mom needed Max assistance for attempting with the shield. Mom was encouraged to pump the L breast or use the nipple shield until it heals enough to relatch to that nipple. Mom was also encouraged to call for infants feedings for latch checks to ensure she is latching appropriately so she does not get more sores. Nipple shield provided to mother due to sore, cracked L nipple. Reviewed good handwashing, cleaning the nipple shield and the appropriate way to apply and use as a tool. Discussed with mom the nipple shield precautions, possible complications associated with the risks and benefits. Reviewed practicing with a nipple shield, then without and how to protect the milk supply and production. Mom and baby guide referred to as a resource for outpatient services, community resources and when to call a provider. Mom voiced understanding of the importance of hand expression, nipple stimulation and initiating a pumping schedule if infant continues to nurse with the shield. Reported to the Primary RN.
[2025-03-30 19:15] VITALS: BP 113/59; PULSE 89; RESP 24; TEMP 36.4; O2SAT 99
[2025-03-30 20:00] VITALS: BP 126/77; PULSE 76; RESP 14; TEMP 36.9; O2SAT 99
[2025-03-31] MEDS: ACETAMINOPHEN 500 MG TABLET 1000 MG PO ×4 (04:28→23:01)
[2025-03-31] MEDS: IBUPROFEN 600 MG TABLET PO ×4 (04:29→23:01)
[2025-03-31] MEDS: oxyCODONE HCL (*CRX) 5 MG TAB IR 10 MG PO (07:22)
[2025-03-31] MEDS: SIMETHICONE 80 MG TAB.CHEW PO ×3 (07:23→16:45)
[2025-03-31] MEDS: LIDOCAINE 5% PATCH 1 PATCH TRANSDERM (07:25)
--- NOTE | 2025-03-31 07:26 | PC.NURSE ---
Patient rating pain 10/10 but declining pain medication at this time- education given and pt expresses she is uinable to swallow big pills. Showed pt roxicodone pill size and pt agreed to try to take them but declined am colace, and iron. This rn suggested mixing iron capsule and with pudding or applesauce and pt declined
--- NOTE | 2025-03-31 07:46 | P.PNOB_ITS ---
OB - PN: Subj Subjective Date/time seen: 03/31/25 07:46 Interval history: patient tearful this morning stating her pain is not well controlled. Patient is nervous about going home in caring for her incision. Patient comments: no complaints, incisional pain, tolerating diet and flatus present OB - PN: Obj Data Labs 03/30/25 03:26 Labs: Laboratory Results - last 24 hr 03/30/25 03:26 Blood Type AB Negative Antibody Screen Negative Screen Negative Baby's Blood Type A pos Baby's SARA Negative Doses of RhIg Required 1 OB - PN A/P Plan day: 2 Plan: routine care Comments: Patient states her pain is not controlled today Will increase oxycodone to 10 mg Offered patient another night in the hospital afebrile, VSS will monitor pain control throughout the day Patient reassured regarding postoperative incision care Anticipate discharge home tomorrow Time Spent With Patient Time: Total time spent is greater than 50% in coordination of care (as documented) at patient's floor/unit and/or counseling patient: Time with patient: less than 15 minutes Review of Systems 2 Constitutional: Constitutional: Reports no additional constitutional complaints Cardiovascular: Cardiovascular: Reports no additional cardiovascular complaints Respiratory: Respiratory: Reports no additional respiratory complaints Gastrointestinal: Gastrointestinal: Reports no additional gastrointestinal complaints Genitourinary: Genitourinary: Reports no additional female genitourinary complaints Exam 2 Const: General: comfortable and no acute distress Resp: Effort & Inspection: normal respiratory effort Auscultation: clear to auscultation bilaterally Cardio: Rate: regular rate GI: GI Palp: Yes Soft to palpation, Yes Tenderness to palpation present (GI) (around incision ) and No Guarding due to palpation present (GI) A uscultation: normal bowel sounds Other: incision C/D/I, covered with Dermabond Psych: Appearance: grossly normal Mental Status: mental status grossly normal Affect: normal affect
[2025-03-31 08:15] VITALS: BP 120/81; PULSE 73; RESP 18; TEMP 36.8; O2SAT 99
--- NOTE | 2025-03-31 12:12 | PC.NURSE ---
0740 Mother called out for assistance with latch. With MAX assist mother was able to latch infant to her right breast in football position. Her left nipple she was still using the nipple shield to feed as that nipple was sore. We reviewed working with the infant, supporting breast, protecting her nipples with an optimal deep latch, good positioning, and good hand washing. Encouraged understanding the benefits of skin to skin, responding to feeding cues, frequencies of feeding 8-12 times in 24 hours (approximately 2-3 hours), duration of feedings, milk production, intake/output feeding sheet and signs of adequate intake encouraging swallowing at the breast. We again reviewed positioning and alignment, supporting breast, off-centered (asymmetrical latch) and leading with the chin with big, open, wide gape. Education again given to the mother of how to visualize the suckling (with good rocking jaw motion) swallows (dropping of the lower jaw) and how to listen for drinking at the breast (the ka sound). Nipple care reviewed with optimal latch, good positioning and using clean hands when touching her breast. Mother voiced understanding of the education shared, to call for assistance if the does not latch or if there is discomfort with . Reported to the Primary RN. 1200 [facility] RN checking in with mother and she said the last feeding around 1000, she was able to latch infant to her left breast without using the nipple shield and that her nipple was healing and the latch was not as sore as before. Mother said the last void had was at 2:00am and [facility] RN told mother that infant would need to have another void by 2:00pm and to be watching for it and let the Primary RN know.
--- NOTE | 2025-03-31 16:13 | PM.OBDSVD ---
DS: Admitting Diagnosis Discharge Date 04/01/25 Admitting Diagnosis intrauterine at term Gestational diabetes DS: Discharge Diagnosis Discharge Diagnosis (1) Delivery by section of full-term : Code(s): O82 - Encounter for delivery without indication Status: Acute OB - DS: Summary OB Procedures : None OB Procedures Intrapartum: OB Procedures: : None Peripartum Data Delivery Method: Section Procedures: Procedures Operation Date: 03/29/25 04:30 Actual Procedure Side Surgeon p Section Not Applicable Aren Max MD complications: none Status at Discharge Functional status at discharge: independent ambulation Overall status at discharge: patient is progressing back to baseline Time Spent with Patient Time attestation: Total time spent providing and/or coordinating discharge services: Time spent: Less than 30 minutes Exam Const: General: comfortable and no acute distress Resp: Effort & Inspection: normal respiratory effort Auscultation: clear to auscultation bilaterally Cardio: Rate: regular rate GI: Inspection: non-distended GI Palp: Yes Soft to palpation, No Firmness to palpation present (GI), Yes Tenderness to palpation present (GI) (mild tenderness over incision ) and No Guarding due to palpation present (GI) Auscultation: normal bowel sounds Psych: Appearance: grossly normal Mental Status: mental status grossly normal Discharge Plan Discharge Discharging Clinician: Aren Max Patient Disposition: Home Activity: as tolerated and pelvic rest Diet: regular Patient Instructions: Antibiotic Form, (DC) Patient Language: Spanish Stand Alone Forms: General Discharge Information Follow-up/Referrals: Aren Max MD [Physician, [employer]] - 1 Week Referral Note: STORM dressing removal Discharge Medications: New oxycodone-acetaminophen 5-325 mg tablet 1 tablet PO Q6H PRN (Reason: pain) Qty: 28 0RF ferrous sulfate 325 mg (65 mg iron) tablet 325 mg PO BID Qty: 60 0RF ibuprofen 600 mg tablet 600 mg PO Q6H PRN (Reason: pain) Qty: 30 0RF sennosides-docusate sodium [Senexon-S] 8.6-50 mg tablet 1 tab-cap PO HS Qty: 30 0RF Continued Flintstones with Iron 18 mg iron tablet,chewable 2 tablet PO DAILY Date of admission: 03/27/25 16:36 Primary Care Provider: Cody,Carmen Ricketts Admitting Provider: Aren Max Attending physician on admission: Aren Max Condition: Stable
[2025-03-31 18:55] VITALS: BP 123/70; PULSE 81; RESP 18; TEMP 36.6; O2SAT 98
[2025-04-01] MEDS: IBUPROFEN 600 MG TABLET PO ×2 (05:36→11:30)
[2025-04-01] MEDS: ACETAMINOPHEN 500 MG TABLET 1000 MG PO ×2 (05:37→11:30)
[2025-04-01 07:50] VITALS: BP 123/83; PULSE 77; RESP 16; TEMP 36.9; O2SAT 98
--- NOTE | 2025-04-01 08:15 | PC.NURSE ---
Consulted with mother concerning needs and she shared that she has no questions or concerns regarding . She is using the nipple shield 'some' and it is recommended to her to pump when using the shield consistently. She is supplementing also and mostly bottle fed last night. Mother is feeding appropriately for growth of infant. has had appropriate feedings in the last 24 hours meets the outcomes for weight, output, blood sugar and jaundice at this time. Reinforced understanding of signs of adequate intake, mastitis, community resources ([facility] referral faxed to [place]), outpatient services, and when to call a provider using the resource of the feeding sheet along with the mom and baby guide. Mother voiced understanding of the information shared, is confident to continue effectively feeding her at home, when to call for assistance, denies any additional assistance or education at this time. Reported to the Primary RN.
[2025-04-01] MEDS: oxyCODONE HCL (*CRX) 5 MG TAB IR PO ×2 (09:01→14:45)
[2025-04-01] MEDS: MULTIVIT/MIN/PREN/FOL AC/IRON TABLET 1 TAB PO (09:01)
[2025-04-01] MEDS: SIMETHICONE 80 MG TAB.CHEW PO ×2 (09:01→11:30)
[2025-04-01] MEDS: DOCUSATE SODIUM 100 MG CAPSULE PO (09:01)
--- NOTE | 2025-04-01 09:30 | PC.NURSE ---
Patient viewed the discharge video Mother & Baby Care, The First Two Weeks. Patient was given the opportunity and encouraged to ask questions. Patient verbalized understanding of information shared and has been given the mother/baby guide for home reference.
[2025-04-02 10:58] VITALS: BP 135/87; PULSE 88; RESP 18; TEMP 36.9; O2SAT 100
== END 2025-04-01 15:30 | disposition home or self-care (01) | DRG 540 ==
LOC: ANHLDR 16:49 → ANHOB2 03-29 08:19
PROVIDERS: Admitting Provider Student in an Organized Health Care Education/Training Program; Visit Provider Student in an Organized Health Care Education/Training Program
PROC: 10D00Z1 Extraction of Products of Conception, Low, Open Approach (ICD-10-PCS; CPT 59514; principal; 2025-03-29 04:30)
DX: O24.429 Gestational diabetes mellitus in childbirth, unspecified control (principal); O76 Abnormality in fetal heart rate and rhythm complicating labor and delivery; O69.81X0 Labor and delivery complicated by cord around neck, without compression, not applicable or unspecified; Z3A.39 39 weeks gestation of pregnancy; Z37.0 Single live birth; O62.1 Secondary uterine inertia; O62.0 Primary inadequate contractions
CPT/HCPCS: 36415; 76819; 82948; 85025; 85461; 86593; 86850; 86900; 86901; 90384; J0690; A9270; J0290; J1885; J2270; J2274; J2405; J2590; J2790; J2795; J7030; J7120

== ENCOUNTER 2025-04-07 17:44 | Emergency (ER) | payer OTHER, SELFPAY ==
[2025-04-07] VITALS (14 sets, daily range): BP systolic 117–135; BP diastolic 82–96; PULSE 72–124; RESP 14–29; TEMP 36.8; O2SAT 97–100
--- NOTE | ~2025-04-07 | CT_ITS ---
EXAMINATION: CTA chest PE abdomen pel DATE: 04/07/2025 19:45 CDT INDICATION: Nausea, weakness and right-sided chest pain. Status post . TECHNIQUE: Computed tomographic angiography (CTA) of the chest, abdomen, and pelvis was performed without and with 100 mL Omnipaque-350 intravenous contrast. The dose-length product was 713.41 mGy-cm. Maximum intensity projection 3D- reconstructions of the aorta and other arteries were constructed by the technologist on a separate workstation. COMPARISON: None. FINDINGS: CHEST CTA: Study is technically adequate without evidence for pulmonary embolism. No thoracic lymphadenopathy. No significant pleural or pericardial effusion. No focal airspace consolidation. No endobronchial lesions. No pneumothorax. No evidence for aortic aneurysm or dissection. ABDOMEN AND PELVIS CTA: Fatty infiltration of the liver. The spleen, pancreas, adrenal glands and kidneys are normal. No significant vascular abnormality. Enlarged uterus, consistent with post gravid state. Nonobstructive bowel gas pattern. There are changes in the anterior abdominal wall consistent with recent . No free air or free fluid. IMPRESSION: 1. No acute abnormality of the chest or abdomen. Reviewed, dictated and finalized at location O.
--- OUTSIDE RECORDS SUMMARY | 2025-04-07 17:46 | XMS_ITS | Clinical Summary ---
Author Organization [facility] expressor software Address [address] [place] [address] Care Team Providers Care Comic Artist Name Role Phone Unavailable Primary Care Provider Unavailabl e Source Comments [facility] [employer],non-owned Affiliates and Associated Physician Practices is amultiple site organization consisting of ambulatory clinics and hospital sitesin [place], [place], [place] and [place]. This disclosure is being madepursuant to the Care Everywhere program and may not contain all information available regarding this patient. Last updated 18.[employer] expressor software Allergies Active Allergy Reactions Criticality Noted Date [...] Type Department Care Team Description 03/22/2025 Telephone [facility] [address] [place] [phone] Pati Ramos, RN LABS ONLY (Called and spoke with Mariza, patient's mother to see if patient was able to get her labwork M requested done. ) 03/02/2025 8:30 AM CDT - 03/02/2025 11:59 PM CDT Hospital Encounter [facility] [address] [place] [phone] Nevaeh Anderson MD Discharge Disposition: Home or Self Care 03/02/2025 8:15 AM CDT - 03/02/2025 8:29 AM CDT Hospital Encounter [facility] [address] [place] [phone] Trina Crowder MD Mead, Judith A, MD Discharge Disposition: Home or Self Care 02/08/2025 Telephone [facility] [address] [place] [phone] Pati Ramos, RN Appointment (Patient does not [...] medical care, and heating? Very hard 06/04/2023 [facility] [place] of Occupat ional Health - Occupational Stress [...] place to sleep or slept in a [place] health care facility (including now)? No 06/04/2023 Estimated Date of [...] 36.6 C (97.8 F) 06/09/2023 7:30 AM UKE OPERATOR Respiratory Rate 18 06/09/2023 7:30 AM UKE OPERATOR Oxygen Saturation 100% 06/09/2023 7:30 AM UKE OPERATOR Inhaled Oxygen Concentration - - Weight 85.7 [...] 6 lb 2 oz EFW by Hadlock ([id number]) appropriate Growth Overview Exam date [place] BPD [...] view. RVOT view. LVOT view. 3-vessel view. 7-xqasmw-iivzfep view. Situs. Aortic arch view. Ductal arch [...] diabetes mellitus in , unspecified control Procedures 23151: Biophysical Profile W NST 48271: [place] Preg Uterus Detailed [facility] [place] PACS Anatomical Region Laterality Modality Other 03/02/2025 8:26 AM CDT us John Gomez MD [facility] ORDERABLES Edited Result - Final from Last 3 Months Insurance Advance Directives * Full Code (Latest Code Status on File) Date Activated Date Inactivated Comments 06/04/2023 4:23 AM 06/09/2023 3:44 PM
[2025-04-07 18:04] LABS: Hematocrit 36.9 % (37.0-47.0); Hemoglobin 11.6 g/dL (12.0-15.0); Immature Granulocyte Percent A 0.9 % (0-0.5); Lymphocytes Absolute Auto 2.09 K/mm3 (0.9-3.2); Mean Corpuscular HGB Conc 31.4 g/dl (32-36); Mean Corpuscular Hemoglobin 25.3 pg (26-34); Mean Corpuscular Volume 80.6 fl (80-100); Nucleated Red Blood Cells Absolute Auto 0.000 K/mm3 (0.0-0.012); Nucleated Red Blood Cells Perc 0.0 % (0.0-0.2); Platelet Count Result 550 k/mm3 (150-375); Red Blood Count 4.58 M/mm3 (4.2-5.4); White Blood Count 9.2 K/mm3 (4.5-10.0)
--- OUTSIDE RECORDS SUMMARY | 2025-04-07 18:16 | XMS_ITS | Clinical Summary ---
Author Organization [facility] [employer] Address [address] [place] [address] Care Team Providers Care Toy Mechanic Name Role Phone Unavailable Primary Care Provider Unavailabl e Source Comments [facility] [employer],non-owned Affiliates and Associated Physician Practices is amultiple site organization consisting of ambulatory clinics and hospital sitesin [place], [place], [place] and [place]. This disclosure is being madepursuant to the Care Everywhere program and may not contain all information available regarding this patient. Last updated 18.[facility] [employer] Allergies Active Allergy Reactions Criticality Noted Date [...] Type Department Care Team Description 03/22/2025 Telephone [facility] [address] [place] [phone] Pati Ramos, RN LABS ONLY (Called and spoke with Mariza, patient's mother to see if patient was able to get her labwork M requested done. ) 03/02/2025 8:30 AM CDT - 03/02/2025 11:59 PM CDT Hospital Encounter [facility] [address] [place] [phone] Nevaeh Anderson MD Discharge Disposition: Home or Self Care 03/02/2025 8:15 AM CDT - 03/02/2025 8:29 AM CDT Hospital Encounter [facility] [address] [place] [phone] Trina Crowder MD Mead, Judith A, MD Discharge Disposition: Home or Self Care 02/08/2025 Telephone [facility] [address] [place] [phone] Pati Ramos, RN Appointment (Patient does not [...] medical care, and heating? Very hard 06/04/2023 [facility] [place] of Occupat ional Health - Occupational Stress [...] place to sleep or slept in a half-way (including now)? No 06/04/2023 Estimated Date of [...] 36.6 C (97.8 F) 06/09/2023 7:30 AM BELL CLEANER Respiratory Rate 18 06/09/2023 7:30 AM BELL CLEANER Oxygen Saturation 100% 06/09/2023 7:30 AM BELL CLEANER Inhaled Oxygen Concentration - - Weight 85.7 [...] 6 lb 2 oz EFW by Hadlock ([id number]) appropriate Growth Overview Exam date [place] BPD [...] view. RVOT view. LVOT view. 3-vessel view. 3-qumpfw-ztonyge view. Situs. Aortic arch view. Ductal arch [...] diabetes mellitus in , unspecified control Procedures 86529: Biophysical Profile W NST 00289: US Preg Uterus Detailed [facility] [place] PACS Anatomical Region Laterality Modality Other 03/02/2025 8:26 AM CDT us John Gomez MD [facility] ORDERABLES Edited Result - Final from Last 3 Months Insurance Advance Directives * Full Code (Latest Code Status on File) Date Activated Date Inactivated Comments 06/04/2023 4:23 AM 06/09/2023 3:44 PM
[2025-04-07 18:23] LABS: Alanine Aminotransferase 23 U/L (6-35); Albumin Level 4.3 g/dL (3.5-5.1); Alkaline Phosphatase 99 U/L (38-126); Anion Gap 10 mmol/L (4-12); Aspartate Amino Transferase 28 U/L (14-36); Bilirubin,Total 0.5 mg/dL (0.2-1.3); Blood Urea Nitrogen 11 mg/dL (7-17); Calcium 9.4 mg/dL (8.4-10.2); Carbon Dioxide 21 mmol/L (22-30); Chloride 106 mmol/L (98-107); Estimated Glomerular Filt Rate > 60; Glucose 123 mg/dL (65-110); Lipase 90 U/L (23-300); Potassium 3.9 mmol/L (3.4-5.0); Sodium 137 mmol/L (137-145); Total Protein 8.3 g/dL (6.3-8.2)
[2025-04-07] MEDS: LACTATED RINGERS 1,000 ML 999 ML IV CONT ×2 (19:00)
[2025-04-07] MEDS: LACTATED RINGERS 300 ML 999 ML IV CONT (19:01)
--- NOTE | 2025-04-07 19:28 | ED.GENADULT ---
HPI - General Adult General Chief complaint: Weakness Stated complaint: decreased appetite, pale, n/v, Time Seen by Provider: 04/07/25 18:06 History of Present Illness HPI narrative: This is a 19-year-old female presenting ED with chief complaint not feeling well. Patient had a performed [address] Max. Starting 2 days ago she developed nausea and vomiting. She has been unable to tolerate solid foods although has been able to drink some water. She is now dizzy, especially when she stands up. She has not had any fevers. She does note some right-sided chest pain. She has some pain in the abdomen although she says that is improving. She has been urinating as normal. No diarrhea Related Data Home Medications ?Medication ?Instructions ?Recorded ?Confirmed ?Last Taken ?Type pediatric multivitamin 2 tablet PO DAILY 03/12/25 03/27/25 Unknown History no.203-ferrous sulfate 18 mg chewable tablet (Flintstones with Iron) Allergies Allergy/AdvReac Type Severity Reaction Status Date / Time pineapple Allergy Swelling Verified 03/24/25 15:36 of Lip/Tongue/Throat PMFSH Past Medical History Medical History Asthma Anxiety Family History Family History Grandparent Breast cancer Heart disease Brain cancer Mother Depression Diabetes mellitus Heart disease Hypertension Father Diabetes mellitus Heart disease Hypertension Social History Social History Smoking status: Never smoker Second hand tobacco smoke exposure: Yes Alcohol intake: former Substance use: never Substance use type: does not use Do You Feel Safe in your Home?: No Lack of Transportation: YES Lack of Food: Never True Current Housing: I Have Housing Concerned About Future Housing: No Difficulty Paying Gas/Electric Bills: No Difficulty Paying for Meds: No Currently Unemployed: No Education: High School Diploma/GED Difficulty w/ Childcare or Family Care: No Living arrangements: with family Occupation/Education: unemployed Gender identity (if verbalized by the patient): Female Sexual Orientation (if Verbalized by the Patient): Straight or Heterosexual Spiritual care concerns: No Exam Narrative: APPEARANCE: Patient appears uncomfortable Head: Lips are chapped, dry mucous membranes EYES: EOMI, NOSE: Atraumatic NECK: Trachea midline RESPIRATORY: No increased rate of breathing clear to auscultation CARDIOVASCULAR: RRR, no peripheral edema ABDOMINAL: Non-distended soft nontender, well-healed scar on the bikini line MUSCULOSKELETAl: No obvious deformities NEURO: Alert. Moving 4/4 extremities SKIN:: Warm, dry. Normal color PSYCHIATRIC: Normal affect Course Vital Signs Vital signs: Vital Signs Temperature 98.2 F 04/07/25 17:46 Pulse Rate 124 H 04/07/25 17:46 Respiratory Rate 20 04/07/25 17:46 Blood Pressure 135/96 H 04/07/25 17:46 Pulse Oximetry 98 04/07/25 17:46 Oxygen Delivery Room Air 04/07/25 17:46 Temperature 98.2 F 04/07/25 17:46 Pulse Rate 97 04/07/25 19:02 Respiratory Rate 21 H 04/07/25 19:02 Blood Pressure 117/82 04/07/25 19:02 Pulse Oximetry 99 04/07/25 19:02 Oxygen Delivery Room Air 04/07/25 17:46 Medical Decision Making [facility] Narrative Medical decision making narrative: -Course: 19-year-old female presenting 1 week after a section for not feeling well. She has had persistent nausea and vomiting has been unable to tolerate food. She appears to be very dehydrated and she is tachycardic in the 120s with Ortho static symptoms. She is also describing some right-sided chest pain. Her c/s incision is healing well without any signs of infection. Her abdominal exam is benign. CTA chest with an occluded abdomen pelvis ordered to evaluate PE and complications. Patient given fluid resuscitation and antiemetics. CTA chest did not reveal any pulmonary embolism, infiltrates or other cardiopulmonary findings. CT abdomen pelvis within expected limits for her recent delivery and . No obvious complications. Laboratory studies within normal limits Patient received IV fluids and antiemetics and looks much improved. Her vital signs have normalized. She has been able to tolerate p.o. in the emergency department. She is comfortable going home and calling Dr. Max is office 1st thing in morning to arrange close follow-up. Patient given return precautions for further vomiting or any new symptoms. -DDX includes but is not limited to: Dehydration, pneumonia, PE, viral syndrome, surgical complication Vital Signs Vital Signs: Vital Signs Temperature 98.2 F 04/07/25 17:46 Pulse Rate 124 H 04/07/25 17:46 Respiratory Rate 20 04/07/25 17:46 Blood Pressure 135/96 H 04/07/25 17:46 Pulse Oximetry 98 04/07/25 17:46 Oxygen Delivery Room Air 04/07/25 17:46 Temperature 98.2 F 04/07/25 17:46 Pulse Rate 97 04/07/25 19:02 Respiratory Rate 21 H 04/07/25 19:02 Blood Pressure 117/82 04/07/25 19:02 Pulse Oximetry 99 04/07/25 19:02 Oxygen Delivery Room Air 04/07/25 17:46 Lab Data 04/07/25 17:57 04/07/25 17:57 Labs: Lab Results 04/07/25 04/07/25 Range/Units 17:57 19:47 WBC 9.2 (4.5-10.0) K/mm3 RBC 4.58 (4.2-5.4) M/mm3 Hgb 11.6 L D (12.0-15.0) g/dL Hct 36.9 L (37.0-47.0) % MCV 80.6 (80-100) fl MCH 25.3 L (26-34) pg MCHC 31.4 L (32-36) g/dl RDW 14.3 (11.5-14.5) % Plt Count 550 H D (150-375) k/mm3 MPV 9.7 (7.4-10.4) fl Immature Gran % (Auto) 0.9 H (0-0.5) % Neut % (Auto) 69.4 (45.5-73.1) % Lymph % (Auto) 22.6 (18.3-44.2) % [place] % (Auto) 5.0 (2.6-8.5) % Eos % (Auto) 1.5 (0-4.4) % Baso % (Auto) 0.6 (0.2-1.2) % Lymph # (Auto) 2.09 (0.9-3.2) K/mm3 [place] # (Auto) 0.5 (0.1-0.6) K/mm3 Eos # (Auto) 0.1 (0-0.3) K/mm3 Baso # (Auto) 0.1 (0.0-0.1) K/mm3 Abs Immat Gran (auto) 0.08 H (0.00-0.031) K/mm3 Absolute Neuts (auto) 6.4 (1.3-6.7) K/mm3 Absolute Nucleated RBC 0.000 (0.0-0.012) K/mm3 Nucleated RBC % 0.0 (0.0-0.2) % Sodium 137 (137-145) mmol/L Potassium 3.9 (3.4-5.0) mmol/L Chloride 106 (98-107) mmol/L Carbon Dioxide 21 L (22-30) mmol/L Anion Gap 10 (4-12) mmol/L BUN 11 (7-17) mg/dL Creatinine 0.60 L (0.7-1.0) mg/dL Estim Creat Clear Calc Not Reportable Estimated GFR > 60 (59 - ) Glucose 123 H (65-110) mg/dL Calcium 9.4 (8.4-10.2) mg/dL Total Bilirubin 0.5 (0.2-1.3) mg/dL AST 28 (14-36) U/L ALT 23 (6-35) U/L Alkaline Phosphatase 99 (38-126) U/L Total Protein 8.3 H (6.3-8.2) g/dL Albumin 4.3 (3.5-5.1) g/dL Lipase 90 (23-300) U/L Influenza A (RT-PCR) Negative (Negative) Influenza B (RT-PCR) Negative (Negative) RSV (RT-PCR) Negative (Negative) SARS-CoV-2 RNA (RT-PCR) Negative (Negative) Discharge Plan Discharge Clinical Impression: Acute dehydration, Nausea & vomiting Patient Disposition: Home Condition: Stable Instructions: Antibiotic Form, Acute Nausea and Vomiting (ED) Additional Instructions: You were seen in the emergency department for dehydration. Please use Zofran for nausea. Please make sure you are eating and drinking as normal. Please call Dr. Max's office 1st thing tomorrow morning to arrange close follow-up. If you are unable to tolerate liquids or you feel your condition is getting worse please return to the ED for re-evaluation. Patient Language: Vincentian Prescriptions: New ondansetron 4 mg tablet,disintegrating 4 mg PO Q8H PRN (Reason: nausea and vomiting) Qty: 30 0RF No Action Flintstones with Iron 18 mg iron tablet,chewable 2 tablet PO DAILY oxycodone-acetaminophen 5-325 mg tablet 1 tablet PO Q6H PRN (Reason: pain) Qty: 28 0RF ibuprofen 600 mg tablet 600 mg PO Q6H PRN (Reason: pain) Qty: 30 0RF sennosides-docusate sodium [Senexon-S] 8.6-50 mg tablet 1 tab-cap PO HS Qty: 30 0RF ferrous sulfate 325 mg (65 mg iron) tablet 325 mg PO BID Qty: 60 0RF Follow-up/Referrals: Cody,Carmen Ricketts, PEST MANAGEMENT SUPERVISOR [Primary Care Provider, Unknown] Aren Max MD [Physician, DESULPHURING OPERATOR] - 1 Day Referral Note: Dehydration w/ n/v
[2025-04-07 20:28] LABS: Influenza A QL RT-PCR Negative (Negative); Influenza B QL RT-PCR Negative (Negative); RSV RNA, RT-PCR Negative (Negative); SARS-CoV-2 RNA PCR Negative (Negative)
[2025-04-07] MEDS: ONDANSETRON INJ 4 MG/2 ML VIAL IV PUSH (20:44)
== END 2025-04-07 21:19 | disposition home or self-care (01) ==
PROVIDERS: Emergency Medicine; Emergency Provider Emergency Medicine
DX: O90.89 Other complications of the puerperium, not elsewhere classified (principal); E86.0 Dehydration; R11.2 Nausea with vomiting, unspecified; Z20.822 Contact with and (suspected) exposure to COVID-19
CPT/HCPCS: 36415; 71275; 74177; 80053; 83690; 85025; 87637; 96361; 96374; 99284; J2405; J7120; Q9967